=== PATIENT | female | born 2000 ===

== ENCOUNTER 2023-08-24 16:04 | Emergency (ER) | payer BC, SELFPAY ==
[2023-08-24 16:06] VITALS: BP 117/69; PULSE 80; RESP 18; TEMP 37; O2SAT 98; BMI 21.3
--- NOTE | 2023-08-24 16:32 | CRLHL7_ITS ---
For Patients: As a result of the Century Cures Act, medical imaging exams and procedure reports are released immediately into your electronic medical record. You may view this report before your referring provider. If you have questions, please contact your health care provider. Indication: Back pain Technique: CT abdomen and pelvis without Intravenous contrast Please note that all CT scans at this facility use dose modulation, iterative reconstruction, and/or weight-based dosing when appropriate to reduce radiation dose to as low as reasonably achievable. Comparison: None Findings: The lower chest is clear. The liver, gallbladder, spleen, adrenal glands, pancreas and kidneys are normal. Urinary bladder is empty/inadequately evaluated. No gross pelvic cyst or mass. The appendix is normal. There is no bowel obstruction. There is no free air, ascites or definite lymphadenopathy. The abdominal aorta is normal in caliber. Soft tissues are unremarkable. Bones are intact and age-appropriate. Impression: Negative noncontrast CT/no obstructive uropathy, bowel obstruction or acute appendicitis. Please note that all CT scans at this facility use dose modulation, iterative reconstruction, and/or weight-based dosing when appropriate to reduce radiation dose to as low as reasonably achievable. Dictated by Yehuda Rosado MD @ 08/24/2023 5:19:31 PM (Electronically Signed)
--- NOTE | 2023-08-24 16:33 | ED_ITS ---
HPI - General Adult General Chief complaint: Back Injury/Pain Stated complaint: Suspected kidney stones Time Seen by Provider: 08/24/23 16:05 History of Present Illness HPI narrative: This 23-year-old female comes in reporting right flank pain that began early this morning. She states that it has become very severe at times during which she was squirming and on the floor in severe pain. She states her is a constant component of this pain throughout the day today and currently her pain is at about 6/10 in severity. She does not report any nausea or vomiting. She states that she had similar symptoms a couple years ago that was determined to be a kidney infection. At that time she did not have any dysuria symptoms. Today she presented to urgent care and did have a macroscopic urinalysis that showed 2+ blood with no other abnormalities. She is not currently menstruating. She did have a negative test this morning. Her mother states that she has had some small kidney stones so there is a family history of kidney stones. Prior to this she has been in good health. Related Data Home Medications ?Medication ?Instructions ?Recorded ?Confirmed desogestrel 0.15 mg-ethinyl 1 tab PO DAILY 08/24/23 08/24/23 estradiol 0.03 mg tablet (Isibloom) Previous Rx's ?Medication ?Instructions ?Recorded ketorolac 10 mg tablet 10 mg PO TID 5 days #15 tabs 08/24/23 Allergies Allergy/AdvReac Type Severity Reaction Status Date / Time No Known Drug Allergies Allergy Verified 08/24/23 13:57 Review of Systems Status of ROS: Reports: 10 or more systems reviewed and unremarkable except as noted in History and below Narrative: Constitutional: No fevers, no weight gain or loss. Eyes: No discharge. No vision changes. HENT: No congestion, no sore throat, no ear pain. Cardiovascular: No chest pain, no palpitations. Respiratory: No shortness of breath, no wheezes, no cough. Gastrointestinal: No abdominal pain, no vomiting, no diarrhea. Right flank pain as described above. Genitourinary: No dysuria, no hematuria. Musculoskeletal: Normal range of motion. Skin: No rashes, no pruritis. Neurological: No dizziness, weakness, sensory change, speech change. Endo/Heme/Allergies: No bruising or bleeding. No polydipsia. Pysch: no suicidality, no anxiety, no insomnia. All other systems reviewed and are negative. PFSH PFS Social History Smoking Status: Never smoker Do you use any of these nicotine containing products: None How often do you have a drink containing alcohol: never How often do you have six or more drinks on one occasion: Never AUDIT-C Alcohol total score: 0 service: No Exam Narrative: Exam Narrative: Constitutional: Well-developed, well-nourished, no acute distress. HEENT: Normocephalic, atraumatic. Neck: Normal range of motion. Nontender. Supple. Heart: Regular. No murmurs. Normal rate. Intact distal pulses. Lungs: Clear to auscultation. No chest discomfort. No wheezes, rhonchi, or rales. Abdomen: Normal bowel sounds. Nontender. No rebound tenderness. Genitalia: Deferred. Back: No midline tenderness. Normal range of motion. Right flank pain that is worse with percussion. Extremities: Normal range of motion. No injury. Skin: Intact. No rash. Warm. No erythema or pallor. Neurologic: No altered sensation. No weakness. Alert and oriented. Psychiatric: No suicidality. No anxiety or depression. No insomnia. Nursing notes and vitals signs are reviewed. Const: Vital Signs, click to edit/add: Vital Signs - 24 hr 08/24/23 16:06 Temperature 98.6 F Pulse Rate [Right Pulse Oximeter] 80 Respiratory Rate 18 Blood Pressure [Ri ght Upper Arm] 117/69 Pulse Oximetry 98 Oxygen Delivery Me thod Room Air Course Vital Signs Vital signs: Initial Vital Signs Temperature 98.6 F 08/24/23 16:06 Temperature Source Temporal Artery Scan 08/24/23 16:06 Pulse Rate 80 08/24/23 16:06 Respiratory Rate 18 08/24/23 16:06 Blood Pressure 117/69 08/24/23 16:06 Blood Pressure Mean 85 08/24/23 16:06 Blood Pressure Position Sitting 08/24/23 16:06 Pulse Oximetry 98 08/24/23 16:06 Oxygen Delivery Method Room Air 08/24/23 16:06 Vital Signs Temperature 98.6 F 08/24/23 16:06 Pulse Rate 80 08/24/23 16:06 Respiratory Rate 18 08/24/23 16:06 Blood Pressure 117/69 08/24/23 16:06 Pulse Oximetry 98 08/24/23 16:06 Oxygen Delivery Method Room Air 08/24/23 16:06 Temperature 98.6 F 08/24/23 16:06 Pulse Rate 80 08/24/23 16:06 Respiratory Rate 18 08/24/23 16:06 Blood Pressure 117/69 08/24/23 16:06 Pulse Oximetry 98 08/24/23 16:06 Oxygen Delivery Method Room Air 08/24/23 16:06 Medical Decision Making MDM Narrative Medical decision making narrative: This patient comes in with right flank pain as described above. It began this morning and prior to that she has been in good health. She was suspicious of a kidney stone and did present to Urgent Care where it was found that she did have 2+ red blood cells on the macroscopic urinalysis. The microscopic urinalysis was not obtained at that time. She states that she is feeling better now but previously she had riding severe pain in her right flank region. A CT scan without contrast was obtained here and shows no evidence of kidney stone or hydroureter or hydronephrosis. There are no other abnormalities found. Urinalysis does show microscopic hematuria but no sign of infection. The patient may have passed 2 kidney stone prior to the exam as she is feeling better. I did discuss other possible causes of right flank pain. The patient is okay to be discharged home and did receive a prescription for Toradol. Lab Data Labs: Lab Results 08/24/23 Range/Units 16:32 Urine Color Yellow (Yellow) Urine Appearance Clear (Clear) Urine pH 5.5 (5.0-8.5) Ur Specific [place] 1.025 (1.000-1.030) Urine Protein Negative (Negative) Urine Glucose (UA) Negative (Negative) Urine Ketones Negative (Negative) Urine Blood 2+ A (Negative) Urine Nitrite Negative (Negative) Urine Bilirubin Negative (Negative) Urine Urobilinogen 0.2 (0.2-1.0) Ur Leukocyte Esterase Negative (Negative) Urine RBC 2-5 A (0-2) Urine WBC 0-2 (0-5) Ur Squamous Epith Cells Moderate A (None-Few) Urine Bacteria None (None) Urine Mucus Many A (None) Discharge Plan Discharge Clinical Impression: Acute flank pain Patient Disposition: Home, Self-Care Condition: Improved Additional Instructions: Take medication as needed and indicated. Follow up with MD to recheck urine in 2-3 weeks. Return if worsening. Prescriptions: New ketorolac 10 mg tablet 10 mg PO TID 5 Days Qty: 15 0RF No Action desogestrel-ethinyl estradiol [Isibloom] 0.15-0.03 mg tablet 1 tab PO DAILY Follow Up/Referrals: Provider,Not a Local [Primary Care Provider] - Stand Alone Forms: [employer] Info Instructions
[2023-08-24 17:05] LABS: Appearance Urine Clear (Clear); Bilirubin Urine Negative (Negative); Blood Urine 2+ (Negative); Color Urine Yellow (Yellow); Glucose Urine Negative (Negative); Ketones Urine Negative (Negative); Leukocyte Esterase Urine Negative (Negative); Nitrite Urine Negative (Negative); Protein Urine Negative (Negative); Specific Gravity Urine 1.025 (1.000-1.030); Urobilinogen Urine 0.2 (0.2-1.0); pH Urine 5.5 (5.0-8.5)
[2023-08-24 17:14] LABS: WBC Urine 0-2 (0-5)
[2023-08-24 17:15] LABS: Mucus Urine Many; Squamous Epithelial Cell Urine Moderate (None-Few)
== END 2023-08-24 18:15 | disposition home or self-care (01) ==
PROVIDERS: Emergency Provider Emergency Medicine Emergency Medical Services
DX: R10.9 Unspecified abdominal pain (principal)
CPT/HCPCS: 74176; 81001; 87086; 99283; 99284